=== PATIENT | male | born 1955 | race Caucasian/White ===

== ENCOUNTER 2024-07-29 21:57 | Inpatient (IN) ==
[2024-07-29] MEDS: ACETAMINOPHEN 1,000 MG/100 ML VIAL IV STA (22:18)
[2024-07-29 22:32] LABS: Base Excess VBG 6.4 mEq/L; HCO3 VBG 31 mmol/L; Oxygen Saturation VBG < 60.0 %; PCO2 VBG 45 mmHg (38-50); PO2 VBG 24 mmHg; pH VBG 7.45 (7.36-7.41)
[2024-07-29 22:38] LABS: Basophils # (auto) 0.05 K/uL (0.00-0.20); Basophils % (auto) 0.5 %; Eosinophils # (auto) 0.11 K/uL (0.00-0.50); Hematocrit (blood only) 41.3 % (42.0-52.0); Hemoglobin 13.2 g/dl (14.0-18.0); Immature Granulocytes # (auto) 0.04 K/uL (0.01-0.20); Immature Granulocytes % (auto) 0.4 %; Lymphocytes # (auto) 1.02 K/uL (1.20-3.40); Lymphocytes % (auto) 9.2 %; Mean Corpuscular Hemoglobin 28.6 pg (25.0-34.0); Mean Corpuscular Volume 89.6 fL (80.0-100.0); Mean Platelet Volume 10.7 fL (9.4-12.4); Monocytes # (auto) 0.96 K/uL (0.11-0.59); Monocytes % (auto) 8.7 %; Neutrophils # (auto) 8.89 K/uL (1.40-6.50); Neutrophils % (auto) 80.2 %; Platelet Count 240 K/uL (130-400); RDW Coefficient of Variation 15.5 % (11.5-14.5); RDW Standard Deviation 51.2 fL (36.4-46.3); Red Blood Count 4.61 M/uL (4.70-6.10); White Blood Count 11.07 K/ul (4.8-10.8)
[2024-07-29 22:55] LABS: Albumin Level 4.3 gm/dl (3.4-5.0); Bilirubin Direct 0.3 mg/dl (0-0.2); Bilirubin,Total 1.2 mg/dl (0.2-1.0); Calcium 9.9 mg/dl (8.6-10.3); Creatinine Clr Calc Pharmacy 93.1 ml/min; Magnesium 1.7 mg/dl (1.7-2.4); Potassium 3.6 mmol/L (3.5-5.1); Total Protein 8.7 gm/dl (6.0-8.3)
--- NOTE | 2024-07-29 23:01 | Emergency Department Note ---
Impression & Plan Acute hypoxic respiratory failure, Non-ST elevation HI (NSTEMI), Rhinovirus infection, Enterovirus infection, Elevated brain natriuretic peptide (BNP) level ED Provider Note HISTORY OF PRESENT ILLNESS: Patient is a 69-year-old male presenting with shortness of breath. Patient reports that he was seen earlier in the emergency department today and diagnosed with rhinovirus. He states that he was at home taking a nap when he was wearing his CPAP and he woke up and tried to get to the bathroom and he did not feel well and felt very short of breath. He does not wear any supplemental oxygen at baseline other than the CPAP at nighttime when he sleeps. He states that he was given a DuoNeb and route with EMS and is feeling slightly improved. He denies any chest pain. Denies any fevers at home today, but is febrile on arrival to the emergency department. He denies any abdominal pain, nausea or vomiting. Denies any dysuria or hematuria. Reports "I feel really crummy." ROS: as above PHYSICAL EXAM: Constitutional: Patient appears in no acute distress. HENT: Head: Normocephalic and atraumatic. Eyes: EOMI, PERRL Mouth/Throat: Mucous membranes moist. Neck: Trachea midline. Neck supple. Cardiovascular: Tachycardic with irregularly irregular rhythm. No murmurs, rubs or gallops. Intact distal pulses. Pulmonary/Chest: No respiratory distress. Breath sounds clear and equal bilaterally. No wheezes or rales. On 3L NC. Abdominal: Abdomen soft, no tenderness, rebound or guarding. Musculoskeletal: No edema, tenderness or deformity noted. Skin: Warm and dry. No rash, erythema, pallor or cyanosis Psychiatric: Appropriate mood and affect for situation. Neurological: Alert and keenly responsive. CN II-XII grossly intact, moving all extremities equally and fully. MDM: - Vitals signs showed hypertension, fever, tachycardia and hypoxia. Patient placed on 3 L nasal cannula with improvement of saturations to 94%. He is given 1 g IV Tylenol for fever. - History obtained via patient. History as above. - Chronic conditions affecting care: DM-2; HLD; CHF; Afib; HTN - Differential diagnoses include, but are not limited to: Congestive heart failure; acute coronary syndrome; COPD/asthma exacerbation; pulmonary edema; pulmonary embolism; pneumonia; pneumothorax; viral syndrome - Order placed for continuous cardiac monitoring. At this time, monitor showed rate of 106 bpm with irregular rhythm, per my interpretation. - External medical records reviewed. Chest x-ray from earlier today was noted to have cardiomegaly with pulmonary vascular congestion and probable mild interstitial pulmonary edema. - EKG interpreted by myself showed atrial fibrillation. Rate 92 bpm. QT 364. No acute ischemic changes. - Laboratory workup interpreted by myself showed leukocytosis (WBC 11.07) with neutrophil predominance; stable electrolytes; slightly elevated glucose (128); elevated total bilirubin (1.2); elevated troponin (59.9); elevated BNP (174); normal lactate; normal procalcitonin - Blood cultures obtained - CXR negative for pneumonia, per my interpretation - Patient on 3L NC, which is a new oxygen requirement for him. He was given 2 breathing treatments en route with EMS and does not have any audible wheezing on exam. - Viral respiratory panel from earlier today was positive for rhinovirus/enterovirus infection. - VBG grossly normal - Given patient's new oxygen requirement, will admit to hospitalist service. - Discussion was had with human services case manager about patient's case and need for admission - Hospitalist, Dr. Martinez, consulted for admission - Patient admitted to [facility] hospitalist service for further evaluation and management. ASSESSMENT AND PLAN: Diagnosis: Acute hypoxic respiratory failure; rhinovirus infection; enterovirus infection; elevated BNP; NSTEMI Plan: admit Past Med/Surg History Problem List (Updated 07/29/24 @ 23:48 by Zuleyma Mora MD) Elevated brain natriuretic peptide (BNP) level (Acute) Enterovirus infection (Acute) Rhinovirus infection (Acute) Non-ST elevation HI (NSTEMI) (Acute) Acute hypoxic respiratory failure (Acute) Rhinovirus (Acute) Pneumonia (Acute) Upper respiratory infection (Acute) Atherogenic dyslipidemia Chronic diastolic heart failure HTN (hypertension) (Chronic) Obstructive sleep apnea (Chronic) Morbid obesity (Chronic) Anxiety (Chronic) Diabetic peripheral neuropathy (Chronic) Insulin-requiring or dependent type II diabetes mellitus (Chronic) Hyperlipidemia (Chronic) CHF (congestive heart failure) Atrial fibrillation (Chronic) Metabolic syndrome GERD (gastroesophageal reflux disease) Dietary counseling and surveillance Chronic kidney disease, stage 3a Vitamin D deficiency Diabetes mellitus with stage 3 chronic kidney disease Medical History Abnormal stress test Acute kidney injury Hx of Guillain-[place] syndrome T2DM (type 2 diabetes mellitus) Surgical History History of tonsillectomy History of cataract extraction History of carpal tunnel release of both wrists Family History Mother Hypertension Father Diabetes Hypertension Heart disease Brother Diabetes Hypertension Heart disease Sister Hypertension Grandfather (Paternal) Myocardial infarction Grandmother (Paternal) Myocardial infarction Social History Smoking Status: Never smoker Hx Alcohol Use: Yes Alcohol type: beer and hard liquor Alcohol Intake Frequency Comment: mainly on hollidays Preferred Language: Urdu Feels Safe at Home: Yes Allergies Allergies Allergy/AdvReac Type Severity Reaction Status Date / Time amoxicillin Allergy Verified 02/19/24 13:20 Home Meds Home Medications Medication Instructions Recorded Confirmed atorvastatin 20 mg tablet 20 mg PO QPM 08/06/20 02/19/24 clonazepam 0.5 mg tablet 0.5 mg PO DAILY 08/06/20 02/19/24 melatonin 10 mg capsule 10 mg PO HS 08/06/20 02/19/24 metoprolol succinate 50 mg 50 mg PO DAILY 08/06/20 02/19/24 tablet,extended release 24 hr multivitamin 1 tab PO DAILY 08/06/20 02/19/24 blood sugar diagnostic (OneTouch #10 ea 03/30/23 02/19/24 Ultra Blue Test Strip) furosemide 20 mg tablet 20 mg PO DAILY 03/30/23 02/19/24 warfarin 6 mg tablet See Rx Instructions PO .COMPLEX 07/27/23 02/19/24 insulin aspart U-100 100 unit/mL 1 sliding scale dose subcut DAILY 12/25/23 02/19/24 (3 mL) subcutaneous pen (Novolog PRN FlexPen U-100 Insulin aspart) metformin 500 mg tablet 500 mg PO DAILY 12/25/23 02/19/24 pen needle, diabetic 31 gauge x 12/25/23 02/19/24 3/16" (BD Ultra-Fine Mini Pen Needle) acetaminophen [Tylenol Arthritis 650 mg PO PRN 02/15/24 02/19/24 Pain] gabapentin 800 mg tablet 800 mg PO TID 02/15/24 02/19/24 pantoprazole 40 mg tablet,delayed 40 mg PO DAILY 07/29/24 release Previous Rx's Medication Instructions Recorded cyanocobalamin (vitamin B-12) 1,000 mcg PO DAILY #30 caps 01/04/21 1,000 mcg capsule dapagliflozin propanediol 10 mg 10 mg PO DAILY #90 tabs 11/20/23 tablet apixaban 5 mg tablet (Eliquis) 5 mg PO BID #180 tabs 02/26/24 lisinopril 30 mg tablet 30 mg PO DAILY #90 tabs 04/10/24 semaglutide 2 mg/dose (8 mg/3 mL) 2 mg (0.75 mL) subcut Q7D #3 mL 07/23/24 subcutaneous pen injector (Ozempic) doxycycline hyclate 100 mg tablet 100 mg PO BID 7 days #14 tabs 07/29/24 Results & Data (ED) Vital Signs Vital Signs - 24 hr 07/29/24 21:58 07/29/24 22:08 07/29/24 22:09 Temperature 39.5 C H Temperature Source Oral Pulse Rate 130 H 121 H Pulse Rate [Finger] Respiratory Rate 24 Blood Pressure 168/136 H Blood Pressure [Left Arm] Blood Pressure Mean 146 Blood Pressure Mean [Left Arm] Pulse Oximetry 93 93 Oxygen Delivery Method Room Air Room Air Oxygen Flow Rate Sepsis Recent Fever Within 48 Hours Yes Sepsis New/Unexplained Change in Mental Status N/A Sepsis Action Taken by Nursing No Action Required 07/29/24 22:14 07/29/24 22:20 07/29/24 22:25 Temperature Temperature Source Pulse Rate Pulse Rate [Finger] 113 H Respiratory Rate 24 Blood Pressure Blood Pressure [Left Arm] Blood Pressure Mean Blood Pressure Mean [Left Arm] Pulse Oximetry 92 94 87 L Oxygen Delivery Method Room Air Room Air Room Air Oxygen Flow Rate Sepsis Recent Fever Within 48 Hours Sepsis New/Unexplained Change in Mental Status Sepsis Action Taken by Nursing 07/29/24 22:26 07/29/24 22:28 07/29/24 22:40 Temperature Temperature Source Pulse Rate Pulse Rate [Finger] 106 H Respiratory Rate 26 H Blood Pressure Blood Pressure [Left Arm] 176/119 H Blood Pressure Mean Blood Pressure Mean [Left Arm] 138 Pulse Oximetry 94 93 94 Oxygen Delivery Method Nasal Cannula Room Air Nasal Cannula Oxygen Flow Rate 3 3 Sepsis Recent Fever Within 48 Hours Sepsis New/Unexplained Change in Mental Status Sepsis Action Taken by Nursing 07/29/24 22:55 07/29/24 23:10 07/29/24 23:11 Temperature 37.5 C Temperature Source Oral Pulse Rate Pulse Rate [Finger] 103 H 105 H Respiratory Rate 24 26 H Blood Pressure Blood Pressure [Left Arm] 140/87 140/87 Blood Pressure Mean Blood Pressure Mean [Left Arm] 104 104 Pulse Oximetry 94 95 Oxygen Delivery Method Nasal Cannula Nasal Cannula Oxygen Flow Rate 3 3 Sepsis Recent Fever Within 48 Hours Sepsis New/Unexplained Change in Mental Status Sepsis Action Taken by Nursing 07/29/24 23:15 Temperature Temperature Source Pulse Rate Pulse Rate [Finger] 103 H Respiratory Rate 22 Blood Pressure Blood Pressure [Left Arm] 170/95 H Blood Pressure Mean Blood Pressure Mean [Left Arm] 120 Pulse Oximetry 95 Oxygen Delivery Method Nasal Cannula Oxygen Flow Rate 3 Sepsis Recent Fever Within 48 Hours Sepsis New/Unexplained Change in Mental Status Sepsis Action Taken by Nursing Laboratory Data 07/29/24 22:20 07/29/24 22:20 Lab Results 07/29/24 Range/Units 22:20 WBC 11.07 H (4.8-10.8) K/ul RBC 4.61 L (4.70-6.10) M/uL Hgb 13.2 L (14.0-18.0) g/dl Hct 41.3 L (42.0-52.0) % MCV 89.6 (80.0-100.0) fL MCH 28.6 (25.0-34.0) pg MCHC 32.0 (32.0-36.0) g/dL RDW Std Deviation 51.2 H (36.4-46.3) fL RDW Coeff of Stewart 15.5 H (11.5-14.5) % Plt Count 240 (130-400) K/uL MPV 10.7 (9.4-12.4) fL Immature Gran % (Auto) 0.4 % Neut % (Auto) 80.2 % Lymph % (Auto) 9.2 % Wood % (Auto) 8.7 % Eos % (Auto) 1.0 % Baso % (Auto) 0.5 % Neut # (Auto) 8.89 H (1.40-6.50) K/uL Lymph # (Auto) 1.02 L (1.20-3.40) K/uL Wood # (Auto) 0.96 H (0.11-0.59) K/uL Eos # (Auto) 0.11 (0.00-0.50) K/uL Baso # (Auto) 0.05 (0.00-0.20) K/uL Immature Gran # (Auto) 0.04 (0.01-0.20) K/uL VBG pH 7.45 H (7.36-7.41) VBG pCO2 45 (38-50) mmHg VBG pO2 24 mmHg VBG HCO3 31 mmol/L VBG O2 Saturation < 60.0 % VBG Base Excess 6.4 mEq/L Sodium 140 (136-145) mmol/L Potassium 3.6 (3.5-5.1) mmol/L Chloride 102 (98-107) mmol/L Carbon Dioxide 28 (21-32) mmol/L Anion Gap 10 (3-11) BUN 21 (6-23) mg/dl Creatinine 1.05 (0.6-1.4) mg/dl Est Cr Clr Drug Dosing 93.1 ml/min eGFR 76.36 BUN/Creatinine Ratio 20.0 (10-20) Glucose 128 H (70-99(Fasting)) mg/dl Lactate 1.8 (0.4-2.0) mmol/L Calcium 9.9 (8.6-10.3) mg/dl Magnesium 1.7 (1.7-2.4) mg/dl Total Bilirubin 1.2 H (0.2-1.0) mg/dl Direct Bilirubin 0.3 H (0-0.2) mg/dl AST 19 (13-39) U/L ALT 15 (7-52) U/L Alkaline Phosphatase 69 (34-104) U/L Troponin I High Sens 59.9 H* (0-20) pg/ml B-Natriuretic Peptide 174 H (0-100) pg/ml Total Protein 8.7 H (6.0-8.3) gm/dl Albumin 4.3 (3.4-5.0) gm/dl Procalcitonin 0.09 (0-0.5) ng/ml Administered Medications Discontinued Medications Acetaminophen (Ofirmev) 1,000 mg in 100 mls @ 400 mls/hr IV NOW STA Stop: 07/29/24 22:24 Last Infusion: 07/29/24 22:34 Dose: Infused Documented By: Admin: 07/29/24 22:18 Dose: 400 mls/hr Documented By: WAYNE Discharge Plan Visit Data Chief Complaint: Shortness of Breath/Dyspnea Stated Complaint: SHORTNESS OF BREATH, RHINO VIRUS ED Provider: Zuleyma Mora Discharge Problem: Acute hypoxic respiratory failure, Non-ST elevation HI (NSTEMI), Rhinovirus infection, Enterovirus infection, Elevated brain natriuretic peptide (BNP) level Forms Stand Alone Forms: My [facility] Prescriptions Prescriptions: No Action dapagliflozin propanediol 10 mg tablet 10 mg PO DAILY Qty: 90 3RF Eliquis 5 mg tablet 5 mg PO BID Qty: 180 3RF Rx Instructions: stop warfarin, 5 days later check INR and if less than 1.5 begin Eliquis as directed. lisinopril 30 mg tablet 30 mg PO DAILY Qty: 90 3RF Ozempic 2 mg/dose (8 mg/3 mL) pen injector 2 mg subcut Q7D Qty: 3 2RF (DME) OneTouch Ultra Blue Test Strip Strip See Rx Instructions .ROUTE .MEDSUPPLY Qty: 10 Rx Instructions: Test blood sugar once daily PRN gabapentin 800 mg tablet 800 mg PO TID cyanocobalamin (vitamin B-12) 1,000 mcg capsule 1,000 mcg PO DAILY Qty: 30 0RF furosemide 20 mg tablet 20 mg PO DAILY multivitamin Tablet 1 tab PO DAILY metoprolol succinate 50 mg tablet extended release 24 hr 50 mg PO DAILY atorvastatin 20 mg tablet 20 mg PO QPM clonazepam 0.5 mg tablet 0.5 mg PO DAILY melatonin 10 mg capsule 10 mg PO HS warfarin 6 mg tablet See Rx Instructions PO .COMPLEX Hold Instructions: changing meds. Rx Instructions: 6mg daily acetaminophen [Tylenol Arthritis Pain] 650 mg PO PRN insulin aspart U-100 [Novolog FlexPen U-100 Insulin] 100 unit/mL (3 mL) insulin pen 1 sliding scale dose subcut DAILY PRN metformin 500 mg tablet 500 mg PO DAILY Rx Instructions: Take with food. (DME) pen needle, diabetic [BD Ultra-Fine Mini Pen Needle] 31 gauge x 3/16" needle See Rx Instructions .ROUTE .MEDSUPPLY Rx Instructions: Inject insulin PRN pantoprazole 40 mg tablet,delayed release (DR/EC) 40 mg PO DAILY doxycycline hyclate 100 mg tablet 100 mg PO BID 7 Days Qty: 14 0RF Referrals Referrals: Juarez Connelly MD [Primary Care Provider] -
[2024-07-29 23:07] LABS: Troponin I High Sensitivity 59.9 pg/ml (0-20)
--- NOTE | 2024-07-30 00:11 | History & Physical Report ---
Date of Service July 29, 2024 Assessment & Plan (1) Enterovirus infection: Plan: Patient with Enterovirus, symptoms progressive over the last 3 days. Concern for developing pneumonia given worsening symptoms and infiltrates noted on CXR although with normal procalcitonin at this time -Admit to medical -Maintain droplet precautions -Supplemental O2 as needed to maintain saturations 94% or greater -Tylenol PRN -Zofan PRN -DuoNebs scheduled q 4 hours while awake -Guaifenesin 1200mg po BID (2) Elevated troponin: Plan: Patient with elevated troponin=59.5 --> 97.4. No report of chest pain -Repeat troponin -Check 2D echo (3) HTN (hypertension): Plan: Chronic. BP mildly elevated 153/83 -Continue Lisinopril -Continue Metoprolol (4) Obstructive sleep apnea: Plan: Chronic -Continue CPAP (5) Insulin-requiring or dependent type II diabetes mellitus: Plan: Chronic. Well controlled with last HgbA1C on 07/25 = 6. Patient is on Metformin, Dapagliflozin and Semaglutide at home. -Hold home regimen -Lantus 7u BID with ISS -Gabapentin 800mg po TID for neuropathy (6) Hyperlipidemia: Plan: Chronic. Stable -Continue Atorvastatin 20mg po daily (7) CHF (congestive heart failure): Plan: Chronic. Patient with elevation of troponin as well as BNP. Concern for some element of volume overload. -Trend troponin to peak -Continue Lasix 20mg po daily (8) Atrial fibrillation: Plan: Chronic. Rate controlled -Continue Apixaban 5mg po BID (9) GERD (gastroesophageal reflux disease): Plan: Chronic. Stable -Continue Protonix 40mg po daily History of Present Illness Chief Complaint: shortness of breath Primary Care Provider: Juarez Connelly MD Gregory Lucas is a 69yo male with history of DM, HTN, HLP, HF, AF and NEFTALI presenting with shortness of breath. Patient developed productive cough and shortness of breath on 07/27/24 which progressively worsened. He was seen in the ER earlier today and was ultimately discharged home. Found to be POSITIVE for Rhinovirus. He went home and took a nap and woke up around 18:00 with acutely worsened shortness of breath. Patient was wearing his CPAP at the time - was unable to catch his breath. Hypoxic on arrival at 87% on room air requiring supplemental O2 - presently saturating 94% on 4L NC Patient additional reports body aches, poor appetite, diarrhea and fever He denies edema, weight gain or orthopnea. No chest pain or palpitations. No nausea, vomiting or diarrhea. Allergies Allergy/AdvReac Type Severity Reaction Status Date / Time amoxicillin Allergy Verified 02/19/24 13:20 Home Medications Medication Instructions Recorded Confirmed Type atorvastatin 20 mg tablet 20 mg PO QPM 08/06/20 07/30/24 History clonazepam 0.5 mg tablet 0.5 mg PO DAILY 08/06/20 07/30/24 History melatonin 10 mg capsule 10 mg PO HS 08/06/20 07/30/24 History metoprolol succinate 50 mg 50 mg PO DAILY 08/06/20 07/30/24 History tablet,extended release 24 hr multivitamin 1 tab PO DAILY 08/06/20 07/30/24 History cyanocobalamin (vitamin B-12) 1,000 mcg PO DAILY #30 caps 01/04/21 07/30/24 Rx 1,000 mcg capsule blood sugar diagnostic (OneTouch #10 ea 03/30/23 02/19/24 History Ultra Blue Test Strip) furosemide 20 mg tablet 20 mg PO DAILY 03/30/23 07/30/24 History warfarin 6 mg tablet See Rx Instructions PO .COMPLEX 07/27/23 02/19/24 History dapagliflozin propanediol 10 mg 10 mg PO DAILY #90 tabs 11/20/23 07/30/24 Rx tablet insulin aspart U-100 100 unit/mL 1 sliding scale dose subcut DAILY 12/25/23 02/19/24 History (3 mL) subcutaneous pen (Novolog PRN FlexPen U-100 Insulin aspart) metformin 500 mg tablet 500 mg PO DAILY 12/25/23 07/30/24 History pen needle, diabetic 31 gauge x 12/25/23 02/19/24 History 3/16" (BD Ultra-Fine Mini Pen Needle) acetaminophen [Tylenol Arthritis 650 mg PO PRN 02/15/24 02/19/24 History Pain] gabapentin 800 mg tablet 800 mg PO TID 02/15/24 07/30/24 History apixaban 5 mg tablet (Eliquis) 5 mg PO BID #180 tabs 02/26/24 07/30/24 Rx lisinopril 30 mg tablet 30 mg PO DAILY #90 tabs 04/10/24 07/30/24 Rx semaglutide 2 mg/dose (8 mg/3 mL) 2 mg (0.75 mL) subcut Q7D #3 mL 07/23/24 07/30/24 Rx subcutaneous pen injector (Ozempic) doxycycline hyclate 100 mg tablet 100 mg PO BID 7 days #14 tabs 07/29/24 07/30/24 Rx pantoprazole 40 mg tablet,delayed 40 mg PO DAILY 07/29/24 07/30/24 History release Past Med/Surg History Problem List (Updated 07/30/24 @ 04:38 by Bahrati Martinez DO) Elevated troponin Elevated brain natriuretic peptide (BNP) level (Acute) Enterovirus infection (Acute) Rhinovirus infection (Acute) Non-ST elevation VA (NSTEMI) (Acute) Acute hypoxic respiratory failure (Acute) Rhinovirus (Acute) Pneumonia (Acute) Upper respiratory infection (Acute) Atherogenic dyslipidemia Chronic diastolic heart failure HTN (hypertension) (Chronic) Obstructive sleep apnea (Chronic) Morbid obesity (Chronic) Anxiety (Chronic) Diabetic peripheral neuropathy (Chronic) Insulin-requiring or dependent type II diabetes mellitus (Chronic) Hyperlipidemia (Chronic) CHF (congestive heart failure) Atrial fibrillation (Chronic) Metabolic syndrome GERD (gastroesophageal reflux disease) Dietary counseling and surveillance Chronic kidney disease, stage 3a Vitamin D deficiency Diabetes mellitus with stage 3 chronic kidney disease Medical History Abnormal stress test Acute kidney injury Hx of Guillain-Lakeland syndrome T2DM (type 2 diabetes mellitus) Surgical History History of tonsillectomy History of cataract extraction History of carpal tunnel release of both wrists Family History Mother Hypertension Father Diabetes Hypertension Heart disease Brother Diabetes Hypertension Heart disease Sister Hypertension Grandfather (Paternal) Myocardial infarction Grandmother (Paternal) Myocardial infarction Social History Smoking Status: Former smoker Second Hand Exposure: No; Do You Dip or Chew Tobacco: No; Tobacco Cessation Education Requested by Patient: No Hx Alcohol Use: Yes Alcohol type: beer Alcohol Intake Frequency Comment: mainly on hollidays Hx Substance Use: No Preferred Language: [place]an Communication Ability: Effective Internet Marketing Analyst Required: No Beliefs That Will Affect Care: None Current Living Situation: Family Current Living Situation Comment: With daughter Other Information That Helps Us Care for You: No Feels Safe at Home: Yes Safety Concerns: Feels Safe At This Time Assistive Devices: CPAP and Oxygen - Continuous Review of Systems Review of Systems: All systems reviewed & are unremarkable except as noted in HPI & below Physical Exam Physical Exam: General: patient appears uncomfortable, NAD Skin: warm, moist, intact, no rashes or lesions HEENT: NC/AT, PERRL, EOMI, anicteric sclera, conjunctiva without injection, external ear normal to inspection and nontender, nares patent, moist mucus membranes, dentition intact, no oropharyngeal lesions, neck supple, trachea midline, no LAD, no thyromegaly, no JVD Heart: +S1/S2, regular, no m/r/g Lungs: equal air entry bilaterally, coarse breath sounds anteriorly improved with coughing, scattered end-expiratory wheezing Abd: +BS, soft, NT/ND, no masses/organomegaly/ascites Ext: warm, 2+ pulses in UE/LE bilaterally, no clubbing/cyanosis or edema Neuro: nonfocal, patient AA&O x 4, speech intact, no facial droop, moving all extremities on command with equal strength 5/5 Results & Data Results & Data Vital Signs (Past 12 Hours) Vital Signs Temp Pulse Pulse Resp BP BP Pulse Ox 07/29/24 23:15 103 H 22 170/95 H 95 07/29/24 23:11 37.5 C 07/29/24 23:10 105 H 26 H 140/87 95 07/29/24 22:55 103 H 24 140/87 94 07/29/24 22:40 106 H 26 H 176/119 H 94 07/29/24 22:28 93 07/29/24 22:26 94 07/29/24 22:25 113 H 24 87 L 07/29/24 22:20 94 07/29/24 22:14 92 07/29/24 22:09 121 H 07/29/24 22:08 93 07/29/24 21:58 39.5 C H 130 H 24 168/136 H 93 O2 Del Method O2 Flow Rate 07/29/24 23:15 Nasal Cannula 3 07/29/24 23:11 07/29/24 23:10 Nasal Cannula 3 07/29/24 22:55 Nasal Cannula 3 07/29/24 22:40 Nasal Cannula 3 07/29/24 22:28 Room Air 07/29/24 22:26 Nasal Cannula 3 07/29/24 22:25 Room Air 07/29/24 22:20 Room Air 07/29/24 22:14 Room Air 07/29/24 22:09 07/29/24 22:08 Room Air 07/29/24 21:58 Room Air Laboratory Results Laboratory Results WBC 11.07 K/ul (4.8-10.8) H 07/29/24 22:20 RBC 4.61 M/uL (4.70-6.10) L 07/29/24 22:20 Hgb 13.2 g/dl (14.0-18.0) L 07/29/24 22:20 Hct 41.3 % (42.0-52.0) L 07/29/24 22:20 MCV 89.6 fL (80.0-100.0) 07/29/24 22:20 MCH 28.6 pg (25.0-34.0) 07/29/24 22:20 MCHC 32.0 g/dL (32.0-36.0) 07/29/24 22:20 RDW Std Deviation 51.2 fL (36.4-46.3) H 07/29/24 22:20 RDW Coeff of Stewart 15.5 % (11.5-14.5) H 07/29/24 22:20 Plt Count 240 K/uL (130-400) 07/29/24 22:20 MPV 10.7 fL (9.4-12.4) 07/29/24 22:20 Immature Gran % (Auto) 0.4 % 07/29/24 22:20 Neut % (Auto) 80.2 % 07/29/24 22:20 Lymph % (Auto) 9.2 % 07/29/24 22:20 [place] % (Auto) 8.7 % 07/29/24 22:20 Eos % (Auto) 1.0 % 07/29/24 22:20 Baso % (Auto) 0.5 % 07/29/24 22:20 Neut # (Auto) 8.89 K/uL (1.40-6.50) H 07/29/24 22:20 Lymph # (Auto) 1.02 K/uL (1.20-3.40) L 07/29/24 22:20 [place] # (Auto) 0.96 K/uL (0.11-0.59) H 07/29/24 22:20 Eos # (Auto) 0.11 K/uL (0.00-0.50) 07/29/24 22:20 Baso # (Auto) 0.05 K/uL (0.00-0.20) 07/29/24 22:20 Immature Gran # (Auto) 0.04 K/uL (0.01-0.20) 07/29/24 22:20 VBG pH 7.45 (7.36-7.41) H 07/29/24 22:20 VBG pCO2 45 mmHg (38-50) 07/29/24 22:20 VBG pO2 24 mmHg 07/29/24 22:20 VBG HCO3 31 mmol/L 07/29/24 22:20 VBG O2 Saturation < 60.0 % 07/29/24 22:20 VBG Base Excess 6.4 mEq/L 07/29/24 22:20 Sodium 140 mmol/L (136-145) 07/29/24 22:20 Potassium 3.6 mmol/L (3.5-5.1) 07/29/24 22:20 Chloride 102 mmol/L (98-107) 07/29/24 22:20 Carbon Dioxide 28 mmol/L (21-32) 07/29/24 22:20 Anion Gap 10 (3-11) 07/29/24 22:20 BUN 21 mg/dl (6-23) 07/29/24 22:20 Creatinine 1.05 mg/dl (0.6-1.4) 07/29/24 22:20 Est Cr Clr Drug Dosing 93.1 ml/min 07/29/24 22:20 eGFR 76.36 07/29/24 22:20 BUN/Creatinine Ratio 20.0 (10-20) 07/29/24 22:20 Glucose 128 mg/dl (70-99(Fasting)) H 07/29/24 22:20 Lactate 1.8 mmol/L (0.4-2.0) 07/29/24 22:20 Calcium 9.9 mg/dl (8.6-10.3) 07/29/24 22:20 Magnesium 1.7 mg/dl (1.7-2.4) 07/29/24 22:20 Total Bilirubin 1.2 mg/dl (0.2-1.0) H 07/29/24 22:20 Direct Bilirubin 0.3 mg/dl (0-0.2) H 07/29/24 22:20 AST 19 U/L (13-39) 07/29/24 22:20 ALT 15 U/L (7-52) 07/29/24 22:20 Alkaline Phosphatase 69 U/L (34-104) 07/29/24 22:20 Troponin I High Sens 97.4 pg/ml (0-20) H* D 07/30/24 01:00 B-Natriuretic Peptide 174 pg/ml (0-100) H 07/29/24 22:20 Total Protein 8.7 gm/dl (6.0-8.3) H 07/29/24 22:20 Albumin 4.3 gm/dl (3.4-5.0) 07/29/24 22:20 Procalcitonin 0.09 ng/ml (0-0.5) 07/29/24 22:20 Urine Color Yellow 07/29/24 23:42 Urine Appearance Clear (Clear) 07/29/24 23:42 Urine pH 6.0 (4.5-7.5) 07/29/24 23:42 Ur Specific [place] 1.039 (1.000-1.030) H 07/29/24 23:42 Urine Protein 1+ (Negative) H 07/29/24 23:42 Urine Glucose (UA) 3+ (Negative) H 07/29/24 23:42 Urine Ketones 1+ (Negative) H 07/29/24 23:42 Urine Blood Negative (Negative) 07/29/24 23:42 Urine Nitrite Negative (Negative) 07/29/24 23:42 Urine Bilirubin Negative (Negative) 07/29/24 23:42 Urine Urobilinogen Negative (Negative) 07/29/24 23:42 Ur Leukocyte Esterase Negative (Negative) 07/29/24 23:42 Urine WBC (Auto) 0-5 /hpf (0-5) 07/29/24 23:42 Urine RBC (Auto) 0-2 /hpf (0-2) 07/29/24 23:42 U Hyaline Cast (Auto) 0-2 /lpf (0-2) 07/29/24 23:42 U Epithel Cells (Auto) 0-2 /hpf (0-2) 07/29/24 23:42 Urine Bacteria (Auto) None Seen (None Seen) 07/29/24 23:42 Impressions Chest X-Ray 07/29/24 22:10 Exam(s): XR CXR 1 VIEW EXAM: XR Chest, 1 View CLINICAL HISTORY: Reason for exam: Sepsis. TECHNIQUE: Frontal view of the chest. COMPARISON: 07/29/24 at 0831 FINDINGS: Lungs: Increasing bilateral lower lung zone airspace opacities, left greater than right, concerning for pneumonia. Pleural space: No pneumothorax. No visible pleural effusion. Left costophrenic angle is excluded from view. Heart: Stable heart size. Bones/joints: No acute fracture. No dislocation. IMPRESSION: Increasing bilateral lower lung zone airspace opacities, left greater than right, concerning for pneumonia. Electronically signed by: Mitch Saldana M.D. 07/30/24 01:13 AM Code Status & VTE Plan VTE Prophylaxis Plan VTE Prophylaxis will be ordered: Yes PG Care Time/CCT Total # of Minutes Spent Total Time Spent with Patient: Total time spent is greater than 50% in coordination of care (as documented) at patient's floor/unit and/or counseling patient: Coding Level of Care Code 64857 INT INP/OBS CARE 3/75MIN Diagnoses Enterovirus infection B34.1 Elevated troponin R79.89 Primary hypertension I10 Hypertension type: primary hypertension Obstructive sleep apnea G47.33 Insulin-requiring or dependent type II diabetes mellitus E11.9; Z79.4 Mixed hyperlipidemia E78.2 Hyperlipidemia type: mixed hyperlipidemia Chronic congestive heart failure, unspecified heart failure type I50.9 Heart failure type: unspecified Heart failure chronicity: chronic Atrial fibrillation I48.91 GERD (gastroesophageal reflux disease) K21.9 (3) HTN (hypertension) Hypertension type: primary hypertension Qualified Code(s): I10 - Essential (primary) hypertension (6) Hyperlipidemia Hyperlipidemia type: mixed hyperlipidemia Qualified Code(s): E78.2 - Mixed hyperlipidemia (7) CHF (congestive heart failure) Heart failure type: unspecified Heart failure chronicity: chronic Qualified Code(s): I50.9 - Heart failure, unspecified
[2024-07-30 00:14] LABS: Appearance Urine Clear (Clear); Bacteria Urine Automated None Seen (None Seen); Bilirubin Urine Negative (Negative); Blood Urine Negative (Negative); Cast Urine Automated 0-2 /lpf (0-2); Color Urine Yellow; Epithelial Cell Urine Auto 0-2 /hpf (0-2); Glucose Urine UA 3+ (Negative); Ketones Urine 1+ (Negative); Leukocyte Esterase Urine Negative (Negative); Nitrite Urine Negative (Negative); Protein Urine 1+ (Negative); RBC Urine Automated 0-2 /hpf (0-2); Specific Gravity Urine 1.039 (1.000-1.030); Urobilinogen Urine Negative (Negative); WBC Urine Automated 0-5 /hpf (0-5)
[2024-07-30] MEDS: hydrALAZINE HCL 20 MG/ML VIAL IV STA (00:49)
[2024-07-30] MEDS: GABAPENTIN 800 MG TAB PO STA (01:09)
[2024-07-30] MEDS: APIXABAN 5 MG TABLET PO STA (01:10)
--- NOTE | 2024-07-30 01:15 | XRay Report ---
Exam(s): XR CXR 1 VIEW EXAM: XR Chest, 1 View CLINICAL HISTORY: Reason for exam: Sepsis. TECHNIQUE: Frontal view of the chest. COMPARISON: 07/29/24 at 0831 FINDINGS: Lungs: Increasing bilateral lower lung zone airspace opacities, left greater than right, concerning for pneumonia. Pleural space: No pneumothorax. No visible pleural effusion. Left costophrenic angle is excluded from view. Heart: Stable heart size. Bones/joints: No acute fracture. No dislocation. IMPRESSION: Increasing bilateral lower lung zone airspace opacities, left greater than right, concerning for pneumonia. Electronically signed by: Mitch Saldana M.D. 07/30/24 01:13 AM
[2024-07-30] MEDS ORDERED: ONDANSETRON INJ 2 MG/ML 2 ML VIAL IV PRN (03:21)
[2024-07-30] MEDS ORDERED: MELATONIN 3 MG TAB PO PRN (03:54)
[2024-07-30] MEDS: ALBUT/IPRATROP 3MG/0.5MG NEB 3 ML VIAL NEB SCH (04:08)
[2024-07-30 04:52] LABS: Hematocrit (blood only) 37.8 % (42.0-52.0); Hemoglobin 12.2 g/dl (14.0-18.0); Mean Corpuscular Hgb Conc 32.3 g/dL (32.0-36.0); Mean Platelet Volume 10.9 fL (9.4-12.4); Platelet Count 214 K/uL (130-400); RDW Coefficient of Variation 15.5 % (11.5-14.5); White Blood Count 13.29 K/ul (4.8-10.8)
[2024-07-30 05:02] LABS: Albumin Level 3.7 gm/dl (3.4-5.0); BUN Creatinine Ratio 20.7 (10-20); Bilirubin Direct 0.4 mg/dl (0-0.2); Bilirubin,Total 1.2 mg/dl (0.2-1.0); Calcium 9.5 mg/dl (8.6-10.3); Creatinine Clr Calc Pharmacy 105.9 ml/min; Potassium 3.6 mmol/L (3.5-5.1); Total Protein 7.5 gm/dl (6.0-8.3)
[2024-07-30] MEDS: ACETAMINOPHEN 325 MG TAB PO PRN (07:59)
[2024-07-30] MEDS: GABAPENTIN 800 MG TAB PO SCH (08:01)
[2024-07-30] MEDS: FUROSEMIDE 20 MG TAB PO SCH (08:02)
[2024-07-30] MEDS: lisinopril 10 MG TAB PO SCH (08:02)
[2024-07-30] MEDS: guaiFENesin 600 MG TABCR PO SCH (08:02)
[2024-07-30] MEDS: PANTOprazole 40 MG TAB PO SCH (08:02)
[2024-07-30] MEDS: METOPROLOL SUCC 50MG EXT REL TAB PO SCH (08:02)
[2024-07-30] MEDS: APIXABAN 5 MG TABLET PO SCH (08:03)
--- NOTE | 2024-07-30 08:41 | Hospitalist Progress Note ---
Date of Service July 30, 2024 Assessment & Plan (1) Enterovirus infection: Plan: Patient with Enterovirus, symptoms progressive over the last 3 days. Concern for developing pneumonia given worsening symptoms and infiltrates noted on CXR although with normal procalcitonin at this time -Admit to medical -Maintain droplet precautions -Supplemental O2 as needed to maintain saturations 94% or greater -Tylenol PRN -Zofan PRN -DuoNebs scheduled q 4 hours while awake -Guaifenesin 1200mg po BID 07/30 WBC slightly worse but remaining afebrile. Requiring 4L NC to maintain sats (was on 3L this morning). BNP SLIGHT elevation to 174 but weight close to dry 310- 312lb presently and remains on usual lasix 20mg PO daily Reporting yellow/brown sputum production (RN reporting huerta) --> Chest 2 view obtained for concerns superimposed pneumonia given +cough/sputum production/leukocytosis and rales on R>L on exam --> CXR noting mild interstitial pulm edema, patchy bilateral airspace opacities suspicious for superimposed pneumonia Continue duonebs q4h SCHEDULED, mucinex BID +Incentive spirometer to be provided as well as flutter valve Mag checked, 1.5 -- IV replacement ordered and will monitor on repeat ADDING CEFTRIAXONE/DOXY FOR pneumonia coverage RN obtained sputum cx --> FOLLOW UP No wheezing/need for steroids at this time but will monitor Monitor labs/exam on repeat PT/OT consults added for completeness Supplemental O2 to maintain sats (NOT ON O2 at baseline, would need 2 step if still requiring) (2) Elevated troponin: Plan: Patient with elevated troponin=59.5 --> 97.4 --> 73.2. Suspected demand ischemia from hypoxia/infection above. No reported CP. (EKG noting undetermined rhythm, prior w/ afib.) No CP reported, suspect demand ischemia from infection above, possible elevated HR w/ dehydration from poor PO intake/hypoxia. ECHO ordered on admission, will require follow up. Remains on metoprolol daily, eliquis No need for telemetry at this time but to monitor (3) HTN (hypertension): Plan: Chronic. BP 153/83 on admission Remains on metoprolol, lisinopril Monitor (4) Obstructive sleep apnea: Plan: Chronic -Continue CPAP (5) Insulin-requiring or dependent type II diabetes mellitus: Plan: Chronic. + Well controlled with last HgbA1C on 07/25 = 6. Patient is on Metformin, Dapagliflozin and Semaglutide at home. -Hold home regimen -Lantus 7u BID with ISS BSGs acceptable and will monitor/adjustment as needed (w/ mag replacement w/ dextrose) Continue Gabapentin 800mg po TID for neuropathy. Is on B12 supplementation at baseline w/ metformin use per med rec (6) Hyperlipidemia: Plan: Chronic. Stable -Continue Atorvastatin 20mg po daily (7) CHF (congestive heart failure): Plan: Chronic. Patient with elevation of troponin as well as BNP to 174 (no prior for comparison). Suspected acute on chronic HF w/ preserved EF possible on admission however appears close to reported dry weight ~310-312lb and minimal elevation of BNP w/o increased LE edema and deferred on additional IV diuretics and will monitor volume status with baseline 20mg PO lasix DId have decreased PO intake over the weekened w/ illness as above, monitoring volume status daily (adding I&Os, daily weights) Troponin peaked as above, suspected demand ischemia from hypoxia/enterovirus/possible pneumonia as above. Did have elevated HR, ?afib prior to admission. Keeping mag/K replete Repeat ECHO ordered on admission, will need f/u (8) Atrial fibrillation: Plan: Chronic. Rate controlled at present time. GIven eliquis PO x 1 on admission and remains on 5mg PO BID Keep mag/K replete- mag replacement as above and will monitor (9) GERD (gastroesophageal reflux disease): Plan: Chronic. Stable -Continue Protonix 40mg po daily, mag replacement as above Plan DVT propH: eliquis BID continued Dispo: continued inpatient stay, added antibiotics for suspected superimposed pneumonia. remains on isolation precautions and sputum cx pending/will need follow up. pt/ot consults added for completeness and if improving but still requiring O2 and wanting to go will need 2step prior to dc as not on oxygen at baseline Admission and Anticipated Discharge Date Admission Date: July 30, 2024 Supervising Physician Co-Signing Physician Notes The patient was not seen by me. The chart was reviewed. Case discussed with CIERRA Johnson. Agree with assessment and plan Subjective Evaluated this morning, reports feeling slightly better than when he came in. Still with cough, reports brown/huerta sputum, nursing reported grayish color on recent collection. RN asked to provide patient with incentive spirometer and discussed will order flutter valve as well. CXR w/ opacities and rales on examination and given leukocytosis will plan to at least place on Doxycycline for now and monitor for addition of Ceftriaxone. Will follow up sputum cx. Is on lasix at baseline, no increased LE edema and continues current dose. PO intake fair/slightly decreased since symptoms started this past Monday. Smoking hx in the past but not recently. No hx COPD/inhalers at baseline. Discussed continued inpatient say, abx. Prior allergy to amoxicillin reported vomiting, no anaphylaxis. Will order Ceftriaxone w/ Doxycycline for CAP coverage. Questions/concerns addressed at this time. Physical Exam 2 Physical Exam: General: 69yo male laying in bed, FATIGUED appearing, reporting feeling SLIGHTLY better, NAD HEENT: +facial hair, head atraumatic, normocephalic, mm slightly dry, trachea midline Resp: even/unlabored, slightly diminished in the bases, +RALES RIGHT>LEFT, more at the base, no significant wheezing, on 4L NC, SpO2 97% CV: irregularly irregular, rates controlled, no significant LE edema (reports at baseline), calves nontender, pulses present GI: _BS, soft/NT no cohen MSK/Neuro: nonfocal, not confused, answering questions appropriately, generalized weakness Psych: AOx3, cooperative with exam Results & Data Results & Data Vital Signs (Past 12 Hours) Vital Signs Temp Pulse Pulse Resp BP BP Pulse Ox 07/30/24 07:50 36.8 C 91 H 16 151/96 H 96 07/30/24 07:11 96 H 18 98 07/30/24 04:10 90 18 94 07/30/24 03:23 36.8 C 92 H 20 153/83 H 97 07/30/24 03:23 07/30/24 03:23 36.8 C 92 H 20 153/83 H 97 07/30/24 02:43 75 22 135/73 94 07/30/24 02:11 91 H 07/30/24 01:03 88 20 130/85 96 07/29/24 23:15 103 H 22 170/95 H 95 07/29/24 23:11 37.5 C 07/29/24 23:10 105 H 26 H 140/87 95 07/29/24 22:55 103 H 24 140/87 94 07/29/24 22:40 106 H 26 H 176/119 H 94 07/29/24 22:28 93 07/29/24 22:26 94 07/29/24 22:25 113 H 24 87 L 07/29/24 22:20 94 07/29/24 22:14 92 07/29/24 22:09 121 H 07/29/24 22:08 93 07/29/24 21:58 39.5 C H 130 H 24 168/136 H 93 O2 Del Method O2 Flow Rate 07/30/24 07:50 Nasal Cannula 3 07/30/24 07:11 Nasal Cannula 4 07/30/24 04:10 Nasal Cannula 4 07/30/24 03:23 Nasal Cannula 3 07/30/24 03:23 Nasal Cannula 3 07/30/24 03:23 Nasal Cannula 3 07/30/24 02:43 Nasal Cannula 3 07/30/24 02:11 07/30/24 01:03 07/29/24 23:15 Nasal Cannula 3 07/29/24 23:11 07/29/24 23:10 Nasal Cannula 3 07/29/24 22:55 Nasal Cannula 3 07/29/24 22:40 Nasal Cannula 3 07/29/24 22:28 Room Air 07/29/24 22:26 Nasal Cannula 3 07/29/24 22:25 Room Air 07/29/24 22:20 Room Air 07/29/24 22:14 Room Air 07/29/24 22:09 07/29/24 22:08 Room Air 07/29/24 21:58 Room Air Laboratory Results 07/30/24 04:04 07/30/24 04:04 VBG pH 7.45 Mag 1.5 Troponin 59.9 --> 97.4 --> 73.2 Procalcitonin 0.09 UA 1+ protein, 3+ glucose, 1+ ketones Diagnostic Findings Chest X-Ray 07/29/24 22:10 Exam(s): XR CXR 1 VIEW EXAM: XR Chest, 1 View CLINICAL HISTORY: Reason for exam: Sepsis. TECHNIQUE: Frontal view of the chest. COMPARISON: 07/29/24 at 0831 FINDINGS: Lungs: Increasing bilateral lower lung zone airspace opacities, left greater than right, concerning for pneumonia. Pleural space: No pneumothorax. No visible pleural effusion. Left costophrenic angle is excluded from view. Heart: Stable heart size. Bones/joints: No acute fracture. No dislocation. IMPRESSION: Increasing bilateral lower lung zone airspace opacities, left greater than right, concerning for pneumonia. Electronically signed by: Mitch Saldana M.D. 07/30/24 01:13 AM Chest X-Ray 07/30/24 08:37 XR chest 2V PA/lateral HISTORY: 69 years-old Male f/u PNA vs atelectasis, f/u pulm edema acute shortness of breath COMPARISON: 07/29/2024 TECHNIQUE: PA and lateral views of the chest FINDINGS: Cardiac silhouette is enlarged. Atherosclerosis of the aorta. Pulmonary vascular congestion with interstitial coarsening. Mild hazy bibasilar and left mid lung opacities appear generally stable. Bones appear grossly intact. No pneumothorax. Trace pleural effusions. IMPRESSION: 1. Cardiomegaly with with probable mild interstitial pulmonary edema and trace pleural effusions. 2. Patchy bibasilar and left midlung airspace opacities are again noted suspicious for superimposed pneumonia. ACT 112: Negative or not required by law. The above report was generated using voice recognition software. It may contain grammatical, syntax or spelling errors. Electronically signed by: Braulio Ware M.D. 07/30/2024 10:58 AM PG Care Time/CCT Total # of Minutes Spent Total Time Spent with Patient: Total time spent is greater than 50% in coordination of care (as documented) at patient's floor/unit and/or counseling patient: Coding Level of Care Code 14292 SUB INP/OBS CARE 3/50MIN Diagnoses Enterovirus infection B34.1 Elevated troponin R79.89 Primary hypertension I10 Hypertension type: primary hypertension Obstructive sleep apnea G47.33 Insulin-requiring or dependent type II diabetes mellitus E11.9; Z79.4 Mixed hyperlipidemia E78.2 Hyperlipidemia type: mixed hyperlipidemia Chronic congestive heart failure, unspecified heart failure type I50.9 Heart failure chronicity: chronic Heart failure type: unspecified Atrial fibrillation I48.91 GERD (gastroesophageal reflux disease) K21.9 (3) HTN (hypertension) Hypertension type: primary hypertension Qualified Code(s): I10 - Essential (primary) hypertension (6) Hyperlipidemia Hyperlipidemia type: mixed hyperlipidemia Qualified Code(s): E78.2 - Mixed hyperlipidemia (7) CHF (congestive heart failure) Heart failure chronicity: chronic Heart failure type: unspecified Qualified Code(s): I50.9 - Heart failure, unspecified
[2024-07-30] MEDS ORDERED: clonazePAM 0.5 MG TAB PO SCH (09:00)
[2024-07-30] MEDS: MAGNESIUM SULFATE / D5W 1 GM/100 ML BAG IV ONE ×2 (09:24→12:08)
[2024-07-30 10:00] LABS: Magnesium 1.5 mg/dl (1.7-2.4)
--- NOTE | 2024-07-30 10:59 | XRay Report ---
XR chest 2V PA/lateral HISTORY: 69 years-old Male f/u PNA vs atelectasis, f/u pulm edema acute shortness of breath COMPARISON: 07/29/2024 TECHNIQUE: PA and lateral views of the chest FINDINGS: Cardiac silhouette is enlarged. Atherosclerosis of the aorta. Pulmonary vascular congestion with inte rstitial coarsening. Mild hazy bibasilar and left mid lung opacities appear generally stable. Bones a ppear grossly intact. No pneumothorax. Trace pleural effusions. IMPRESSION: 1. Cardiomegaly with with probable mild interstitial pulmonary edema and trace pleural effusions. 2. Patchy bibasilar and left midlung airspace opacities are again noted suspicious for superimposed p neumonia. ACT 112: Negative or not required by law. The above report was generated using voice recognition software. It may contain grammatical, syntax o r spelling errors. Electronically signed by: Braulio Ware M.D. 07/30/2024 10:58 AM
[2024-07-30] MEDS: cefTRIAXone SODIUM 2,000 MG/50 ML BAG IV SCH (12:59)
[2024-07-30] MEDS: DOXYCYCLINE HYCLATE 100 MG in DEXTROSE 5% MINI-B 100 ML IV SCH (13:30)
[2024-07-30] MEDS: ATORVASTATIN 20 MG TAB PO SCH (20:35)
[2024-07-30] MEDS: clonazePAM 0.5 MG TAB PO SCH (20:35)
--- NOTE | 2024-07-31 08:02 | XRay Report ---
EXAM: XR chest 1V portable CLINICAL HISTORY: FOLLOW UP [facility] TECHNIQUE: X-ray images of the chest were obtained in AP projection COMPARISON: 07/29/2024 FINDINGS: Pulmonary Parenchyma: Mild congestive changes bilaterally with ill-defined hazy opacity in right lung lower zone, could be infiltrates, mildly progressed since prior study. No pneumothorax. Bilateral obscured CP angles could be due to overlying soft tissues or minimal pleural effusion. Heart and Mediastinum: Mild cardiomegaly is likely due to poor inspiratory effort. Bony Thorax: The bony thorax appears intact without any significant deformities. Soft Tissues: Soft tissues overlying the chest wall are unremarkable. IMPRESSION: Mild congestive changes bilaterally with ill-defined hazy opacity in right lung lower zone, could be infiltrates, mildly progressed since prior study dated 07/29/2024. For further evaluation. No pneumothorax. Bilateral obscured CP angles could be due to overlying soft tissues or minimal pleural effusion. Electronically signed by Bassem Cordon 07-31-2024 08:02 AM
--- NOTE | 2024-07-31 09:03 | Hospitalist Progress Note ---
Date of Service July 31, 2024 Assessment & Plan (1) Enterovirus infection: Plan: Presented with SOB x 3 days with productive cough, hypoxia requiring 4L NC to maintain sats with POSITIVE enterovirus testing on [facility]. WBC 12.9k with temp 39.5C which responded well to Tylenol Supportive care initially with duonebs/mucinex and pulmonary toilet however given leukocytosis and CXR concerning for developing pneumonia with increased brown/yellow sputum production decision to add abx coverage for superimposed bacteria pneumonia IMPROVING WBC now wnl, has remained afebrile Continue Ceftriaxone/Doxy (day 2 on 07/31) Duonebs q4h, pulmonary toilet with incentive spirometry and flutter valve Titrated to ROOM AIR today Sputum cx pending, needs follow up Mag wnl but 1.8 and additonal 1gm IV for wheezing w/ his afib, rates controlled and remains on metoprolol/eliquis. Cough syrup added as needed for relief Repeat cxr w/ increased effusions and despite decreased weight compared to dry, additional 20mg PO lasix to be provided Patient feeling more comfortable monitoring overnight and hopeful dc 08/01 on PO abx to complete the course. Monitor for ambulatory pulse ox/2step if needed. (2) Pneumonia: Plan: as above, concerning for superimposed bacterial pneumonia. IMPROVING since additional of abx and now on room air. Tx as outlined and will need f/u sputum cx (3) Hypomagnesemia: Plan: 1.5, IV replacement ordered and improved to 1.8 as above. Additional 1gm provided today to keep closer to 2 w/ underlying afib and will monitor level in am/consider oral replacement. (4) CHF (congestive heart failure): Plan: Acute on chronic HF with preserved ejection fraction suspected however weight at 310lb w/ dry weight 310-312lb reported and continued usual 20mg PO lasix. BNP slight elevation to 174, no increased LE edema but with additional fluid w/ IV/magnesium did order additional 20mg PO dose for 07/31, BUN/Cr 17/.090 Monitor weights/I&Os (weight presently 308lb) ECHO ordered on admission, done but not yet read-- will need f/u (5) Atrial fibrillation: Plan: Chronic, stable Rate controlled at present time and remains on metoprolol/eliquis 5mg BID Mag/k replacement as above to keep closer to 2/4 No issues reported, but will monitor (6) Elevated troponin: Plan: Patient with elevated troponin=59.5 --> 97.4 --> 73.2. Suspected demand ischemia from hypoxia/infection above. No reported CP. (EKG noting undetermined rhythm, prior w/ afib.) Suspect demand ischemia from infection above, possible elevated HR w/ dehydration from poor PO intake/hypoxia with pneumonia/infection as above ECHO still pending as above Continue on metoprolol, eliquis (7) HTN (hypertension): Plan: Chronic, stable and continues on metoprolol, lisinopril, lasix as above with additional dose 07/31 Monitor (8) Obstructive sleep apnea: Plan: Chronic/stable, continue CPAP HS (9) Insulin-requiring or dependent type II diabetes mellitus: Plan: Chronic., controlled. A1c last at 6. Home regimen with metformin, Dapagliflozin and Semaglutide on hold and utilizing SSI while inpatient , BSGs stable. Continues on gabapentin for neuropathy (10) Hyperlipidemia: Plan: Chronic. Stable Continue Atorvastatin 20mg po daily (11) GERD (gastroesophageal reflux disease): Plan: Chronic. Stable Continue Protonix 40mg po daily, mag replacement as above Plan DVT propH: eliquis BID continued Dispo: continued inpatient stay but hopeful for dc 08/01. Need f/u on sputum cx and echo prior to dc. Consideration for ambulatory pulse ox vs 2step if any ongoing O2 needs but is currently on room air Admission and Anticipated Discharge Date Admission Date: July 29, 2024 Supervising Physician Co-Signing Physician Notes The patient was not seen by me. The chart was reviewed. Case discussed with CIERRA Johnson. Agree with assessment and plan Subjective Evaluated this morning, ambulating in the room. Now on room air, increased coughing/sputum production. Discussed WBC improving, sputum cx pending. Patient does report feeling improved but not comfortable going home just yet and will plan to continue current treatment and follow up on sputum cx and possible discharge tomorrow. Did give additional dose of lasix for pulmonary edema/fluid retention to assist with MILD wheezing and will monitor for steroids if needed but suspect likely improvement with additional dose. Physical Exam 2 Physical Exam: General: 69yo male ambulating in the room, looks improved, NAD, +cough HEENT: +facial hair, head atraumatic, normocephalic, mmm, trachea midline Resp: even/unlabored, slightly diminished in the bases with faint end expiratory wheezing more on the R>L, on ROOM AIR today, no tachypnea, able to speak in complete sentences CV: irregularly irregular, rates controlled, no significant LE edema (reports at baseline), calves nontender, pulses present GI: _BS, soft/NT no cohen MSK/Neuro: nonfocal, not confused, answering questions appropriately, generalized weakness Psych: AOx3, cooperative with exam Results & Data Results & Data Vital Signs (Past 12 Hours) Vital Signs Temp Pulse Pulse Resp BP Pulse Ox O2 Del Method 07/31/24 08:37 Room Air 07/31/24 08:17 95 Room Air 07/31/24 07:47 36.3 C L 87 16 135/87 94 Nasal Cannula 07/31/24 07:16 95 H 18 96 Nasal Cannula 07/31/24 02:45 93 H 18 96 Nasal Cannula 07/30/24 23:59 90 17 97 07/30/24 22:21 83 18 94 Nasal Cannula 07/30/24 21:15 37.4 C 94 H 18 148/87 H 95 Room Air O2 Flow Rate 07/31/24 08:37 07/31/24 08:17 07/31/24 07:47 3 07/31/24 07:16 2 07/31/24 02:45 2 07/30/24 23:59 2 07/30/24 22:21 07/30/24 21:15 Laboratory Results 07/31/24 09:26 07/31/24 09:26 Mag 1.8 TB wnl 0.6, LFTs wnl Diagnostic Findings Chest X-Ray 07/31/24 07:00 EXAM: XR chest 1V portable CLINICAL HISTORY: FOLLOW UP [facility] TECHNIQUE: X-ray images of the chest were obtained in AP projection COMPARISON: 07/29/2024 FINDINGS: Pulmonary Parenchyma: Mild congestive changes bilaterally with ill-defined hazy opacity in right lung lower zone, could be infiltrates, mildly progressed since prior study. No pneumothorax. Bilateral obscured CP angles could be due to overlying soft tissues or minimal pleural effusion. Heart and Mediastinum: Mild cardiomegaly is likely due to poor inspiratory effort. Bony Thorax: The bony thorax appears intact without any significant deformities. Soft Tissues: Soft tissues overlying the chest wall are unremarkable. IMPRESSION: Mild congestive changes bilaterally with ill-defined hazy opacity in right lung lower zone, could be infiltrates, mildly progressed since prior study dated 07/29/2024. For further evaluation. No pneumothorax. Bilateral obscured CP angles could be due to overlying soft tissues or minimal pleural effusion. Electronically signed by Bassem Cordon 07-31-2024 08:02 AM PG Care Time/CCT Total # of Minutes Spent Total Time Spent with Patient: Total time spent is greater than 50% in coordination of care (as documented) at patient's floor/unit and/or counseling patient: Coding Level of Care Code 05264 SUB INP/OBS CARE 3/50MIN Diagnoses Enterovirus infection B34.1 Pneumonia J18.9 Hypomagnesemia E83.42 Chronic congestive heart failure, unspecified heart failure type I50.9 Heart failure chronicity: chronic Heart failure type: unspecified Atrial fibrillation I48.91 Elevated troponin R79.89 Primary hypertension I10 Hypertension type: primary hypertension Obstructive sleep apnea G47.33 Insulin-requiring or dependent type II diabetes mellitus E11.9; Z79.4 Mixed hyperlipidemia E78.2 Hyperlipidemia type: mixed hyperlipidemia GERD (gastroesophageal reflux disease) K21.9 (4) CHF (congestive heart failure) Heart failure chronicity: chronic Heart failure type: unspecified Qualified Code(s): I50.9 - Heart failure, unspecified (7) HTN (hypertension) Hypertension type: primary hypertension Qualified Code(s): I10 - Essential (primary) hypertension (10) Hyperlipidemia Hyperlipidemia type: mixed hyperlipidemia Qualified Code(s): E78.2 - Mixed hyperlipidemia
[2024-07-31 09:53] LABS: Basophils # (auto) 0.04 K/uL (0.00-0.20); Basophils % (auto) 0.4 %; Eosinophils # (auto) 0.18 K/uL (0.00-0.50); Eosinophils % (auto) 1.9 %; Hematocrit (blood only) 35.8 % (42.0-52.0); Hemoglobin 11.6 g/dl (14.0-18.0); Immature Granulocytes # (auto) 0.02 K/uL (0.01-0.20); Immature Granulocytes % (auto) 0.2 %; Lymphocytes # (auto) 1.04 K/uL (1.20-3.40); Lymphocytes % (auto) 11.2 %; Mean Corpuscular Hemoglobin 29.1 pg (25.0-34.0); Mean Corpuscular Hgb Conc 32.4 g/dL (32.0-36.0); Mean Corpuscular Volume 89.7 fL (80.0-100.0); Mean Platelet Volume 10.8 fL (9.4-12.4); Monocytes # (auto) 0.55 K/uL (0.11-0.59); Monocytes % (auto) 5.9 %; Neutrophils # (auto) 7.42 K/uL (1.40-6.50); Neutrophils % (auto) 80.4 %; Platelet Count 223 K/uL (130-400); RDW Coefficient of Variation 15.4 % (11.5-14.5); RDW Standard Deviation 50.9 fL (36.4-46.3); Red Blood Count 3.99 M/uL (4.70-6.10); White Blood Count 9.25 K/ul (4.8-10.8)
[2024-07-31] MEDS: FUROSEMIDE 20 MG TAB PO ONE (10:14)
[2024-07-31 10:18] LABS: Albumin Globulin Ratio 0.9 (0.9-2); Albumin Level 3.6 gm/dl (3.4-5.0); BUN Creatinine Ratio 18.9 (10-20); Bilirubin,Total 0.6 mg/dl (0.2-1.0); Calcium 9.4 mg/dl (8.6-10.3); Creatinine Clr Calc Pharmacy 107.9 ml/min; Magnesium 1.8 mg/dl (1.7-2.4); Potassium 3.6 mmol/L (3.5-5.1); Total Protein 7.6 gm/dl (6.0-8.3)
[2024-07-31] MEDS: guaiFENesin/DEXTROM SYRUP 100MG/10MG 5ML UDC PO PRN (11:12)
[2024-07-31] MEDS: MAGNESIUM SULFATE / D5W 1 GM/100 ML BAG IV ONE (11:12)
--- NOTE | 2024-07-31 18:09 | XCELERA ---
[id number]
[2024-07-31] MEDS: DOXYCYCLINE HYCLATE 100 MG CAP PO SCH (20:22)
[2024-07-31] MEDS: COUGH DROP (SUGAR FREE) LOZ 24 LOZ/1 BOX BUCCAL STA (23:37)
[2024-08-01 07:36] LABS: BUN Creatinine Ratio 23.9 (10-20); Calcium 9.1 mg/dl (8.6-10.3); Creatinine Clr Calc Pharmacy 110.2 ml/min; Magnesium 1.8 mg/dl (1.7-2.4); Potassium 3.4 mmol/L (3.5-5.1)
--- NOTE | 2024-08-01 08:25 | Hospitalist Progress Note ---
Date of Service August 01, 2024 Assessment & Plan Admission and Anticipated Discharge Date Admission Date: July 29, 2024 Results & Data Results & Data Vital Signs (Past 12 Hours) Vital Signs Temp Pulse Resp BP Pulse Ox O2 Del Method 08/01/24 07:39 36.8 C 90 16 125/81 99 Room Air 08/01/24 07:16 98 H 18 92 Room Air 08/01/24 03:42 101 H 18 90 Room Air 07/31/24 23:31 99 H 18 90 Room Air PG Care Time/CCT Total # of Minutes Spent Total Time Spent with Patient: Total time spent is greater than 50% in coordination of care (as documented) at patient's floor/unit and/or counseling patient: Coding
[2024-08-01] MEDS: POTASSIUM CHLORIDE CRTAB 20 MEQ TABCR PO STA ×2 (09:51→10:52)
--- NOTE | 2024-08-01 10:25 | Discharge Summary ---
Discharge Summary Date of Service August 01, 2024 Principal Dx & Hospital Course #1 = Principal Diagnosis (1) Enterovirus infection: Presented with SOB x 3 days with productive cough, hypoxia requiring 4L NC to maintain sats with POSITIVE enterovirus testing on [employer]fire. WBC 12.9k with temp 39.5C which responded well to Tylenol Supportive care initially with duonebs/mucinex and pulmonary toilet however given leukocytosis and CXR concerning for developing pneumonia with increased brown/yellow sputum production decision to add abx coverage for superimposed bacteria pneumonia with Ceftriaxone/Doxycycline and continued Duonebs q4h and was titrated and remained on room air. Sputum cx obtained with normal respiratory frieda. WBC normalized and patient remains AFEBRILE. During inpatient stay, Gregory was provided additional 20mg PO lasix on 07/31.. W eight below prior dry weight but was effective and renal function stable and repeat dose provided prior to discharge. as given additional 1gm IV mag and prednisone 40mg for wheezing with plans to continue Cefpodoxime/Doxycycline to complete course for pneumonia. Started/recommended to continue mucinex BID, incentive spirometer/flutter valve. Prednisone at dc 10mg TID x 2 days, BID x 2 days, then once daily x 2 days to complete taper. Educated to monitor for additional lasix as needed for fluid retention Ambulated in the room with nursing and SpO2 remained >93% and no need for 2 step. Albuterol HFA sent at discharge. To return to the ER with any worsening SOB, fevers, or other symptoms concerning for him. (2) Pneumonia: suspected superimposed bacterial pneuomnia given significant leukocytosis/hypoxia/sputum production w/ improvement on exam and titration to room air as above. Completing course PO abx as above and to continue prednisone taper along with pulmonary toilet at discharge (3) Hypomagnesemia: Checked/low and replacement ordered. Given additional 1gm IV to keep closer to 2 but was stable at 1.8 and can consider PO supp in f/u with PCP (4) CHF (congestive heart failure): Acute on chronic HF with preserved ejection fraction suspected however notable his weight at 310lb on admission w/ dry weight reported at 310-312lb reported and continued usual 20mg PO lasix. BNP slight elevation to 174, no increased LE edema but with additional fluid w/ IV/magnesium Continued on metoprolol, lisinopril 30mg daily, lasix 20mg PO daily. additional lasix 20mg PO dose for 07/31., repeat dose 08/01 ordered Renal function stable and weights to 308lb prior to dc. Instructed to monitor for additional needs at discharge with prednisone ECHO w/ normal EF. Septal motion c/w IVCD. RV grossly normal. Mild-mod MR, mild TR Outpt f/u cardiology w/ Dr Alas as needed, ref to CHF clinic placed but is on appropriate GDMT at this time (5) Atrial fibrillation: Chronic, stable Rate controlled at present time and remained on metoprolol/eliquis 5mg BID Outpt f/u as above (6) Elevated troponin: Patient with elevated troponin=59.5 --> 97.4 --> 73.2. Suspected demand ischemia from hypoxia/infection above. No reported CP. (EKG noting undetermined rhythm, prior w/ afib.) Suspect demand ischemia from infection above, possible elevated HR w/ dehydration from poor PO intake/hypoxia with pneumonia/infection as above and HRs improved with treatment ECHO as above and continued on home medications and to have outpt f/u Dr Alas (7) HTN (hypertension): Chronic, stable and continues on metoprolol, lisinopril, lasix as above with additional dose 07/31 Monitor (8) Obstructive sleep apnea: Chronic/stable, continue CPAP HS (9) Insulin-requiring or dependent type II diabetes mellitus: Chronic., controlled. A1c last at 6. Home regimen with metformin, Dapagliflozin and Semaglutide on hold and utilizing SSI while inpatient , BSGs stable and to resume home regimen at discharge Continued on gabapentin for neuropathy (10) Hyperlipidemia: Chronic. Continued Atorvastatin 20mg po daily (11) GERD (gastroesophageal reflux disease): Chronic. Stable. Continued Protonix 40mg po daily Plan DVT propH: eliquis BID continued while inpatient Notes For Next Care Provider F/u CXR for resolution Ensure f/u cardiology/CHF clinic for echo. Medication Changes From Visit Cefpodoxime 200mg PO BID Doxycycline 100mg PO BID Albuterol HFA prn Prednisone taper 10mg TID x 2 days, BID x 2 days, then once daily x 2 days to complete taper. Educated to monitor for additional lasix as needed for fluid retention Mucinex 1200mg PO BID Admission HPI Per Admitting Provider Gregory Spaid is a 69yo male with history of DM, HTN, HLP, HF, AF and NEFTALI presenting with shortness of breath. Patient developed productive cough and shortness of breath on 07/27/24 which progressively worsened. He was seen in the ER earlier today and was ultimately discharged home. Found to be POSITIVE for Rhinovirus. He went home and took a nap and woke up around 18:00 with acutely worsened shortness of breath. Patient was wearing his CPAP at the time - was unable to catch his breath. Hypoxic on arrival at 87% on room air requiring supplemental O2 - presently saturating 94% on 4L NC Patient additional reports body aches, poor appetite, diarrhea and fever He denies edema, weight gain or orthopnea. No chest pain or palpitations. No nausea, vomiting or diarrhea. Admission Exam Per Admitting Provider General: patient appears uncomfortable, NAD Skin: warm, moist, intact, no rashes or lesions HEENT: NC/AT, PERRL, EOMI, anicteric sclera, conjunctiva without injection, external ear normal to inspection and nontender, nares patent, moist mucus membranes, dentition intact, no oropharyngeal lesions, neck supple, trachea midline, no LAD, no thyromegaly, no JVD Heart: +S1/S2, regular, no m/r/g Lungs: equal air entry bilaterally, coarse breath sounds anteriorly improved with coughing, scattered end-expiratory wheezing Abd: +BS, soft, NT/ND, no masses/organomegaly/ascites Ext: warm, 2+ pulses in UE/LE bilaterally, no clubbing/cyanosis or edema Neuro: nonfocal, patient AA&O x 4, speech intact, no facial droop, moving all extremities on command with equal strength 5/5 Discharge Exam General: 69yo male sitting up in the bed, appears improved, on room air HEENT: +facial hair, head atraumatic, normocephalic, mmm, trachea midline Resp: even/unlabored, slightly diminished in the bases with improvement in air entry but still with faint expiratory wheezing on the right>L, able to talk in complete sentences, occasional cough. on ROOM AIR CV: irregularly irregular, rates controlled, trace LE edema, pulses present/calves nontender GI: _BS, soft/NT no cohen MSK/Neuro: nonfocal, not confused, answering questions appropriately, generalized weakness Psych: AOx3, cooperative with exam Discharge Plan Discharge Items Patient Disposition: Home - Self-Care Reason For Visit: RHINOVIRUS, HYPOXIA Discharge Diagnosis: Rhinovirus, Pneumonia Goals: You have been hospitalized for an acute medical problem. During your stay at [facility], we have made an effort to correct the problem that brought you to the hospital while keeping you as comfortable as possible. Medications were used to bring your condition under control and your discharge instructions will include directions for any medications you should take after leaving the hospital. Please make sure you see your Primary Care Provider as part of your follow up plan. Activity: Resume your previous activity Non-emergency contact: Primary Care Provider and Inside Sales Consultant Call non-emergency contact if: you have any medication questions, your symptoms worsen, your pain is not controlled and you have a fever Follow-up/Referrals: Prieto Alas MD, PhD [Physician] - Juarez Connelly MD [Primary Care Provider] - 08/12/24 2:30 pm Diet: Carb Consistent or DM2 and Heart Healthy Addtl Attending Provider Instructions: You have been hospitalized for shortness of breath and low oxygen levels. Respiratory testing was positive for ENTEROVIRUS/RHINOVIRUS, however your elevated white count and sputum production and fevers with chest imaging were concerning for superimposed bacterial pneumonia and you were placed on antibiotics with significant improvement and titration off of oxygen with normal white blood counts on repeat, indicating improvement. At discharge, you are being sent home on Cedpodoxime 200mg twice daily for ano ther FOUR days, Doxycycline will be for another 3 days as is given for atypical coverage. You should continue to use the incentive spirometry and mucinex to help thin mucus and help to cough this up. Sputum culture was negative. We have given you some steroids and at discharge are to take prednisone 10mg three times daily for two days, then decrease to twice daily for two days then once daily for 2 days to complete a taper. Please monitor for swelling/edema or need for additional lasix (furosemide) while on this as this can lead to fluid retention/edema as discussed. You are also being sent home with an albuterol inhaler to use every 4-6 hours for the next couple of days and then can be used as needed for shortness of breath. Please follow up with primary care in the next 7-10 days to monitor your progress after discharge. Please return to the ER with any increased shortness of breath, fevers/chills, chest pain, or for any other symptoms concerning for you. It has been a pleasure being a part of the medical team providing for you while you have been in the hospital. Take care! Pending Studies at Discharge: Yes Studies:: blood cultures -- no growth to date Stand-Alone Forms: My [facility], Smoking Cessation Medications and DC Order Prescriptions: New cefpodoxime 200 mg tablet 200 mg PO BID 4 Days Qty: 8 0RF Rx Instructions: must administer with a meal/food albuterol sulfate 90 mcg/actuation HFA aerosol inhaler 2 inh inhalation Q6H PRN (Reason: shortness of breath or wheezing) Qty: 6.7 0RF guaifenesin [Mucinex] 1,200 mg tablet extended release 12hr 1,200 mg PO BID Qty: 20 0RF doxycycline hyclate 100 mg tablet 100 mg PO BID 3 Days Qty: 6 0RF prednisone 10 mg tablet 10 mg PO DIRECTED Qty: 12 0RF Rx Instructions: see taper instructions Continued dapagliflozin propanediol 10 mg tablet 10 mg PO DAILY Qty: 90 3RF Eliquis 5 mg tablet 5 mg PO BID Qty: 180 3RF Rx Instructions: stop warfarin, 5 days later check INR and if less than 1.5 begin Eliquis as directed. lisinopril 30 mg tablet 30 mg PO DAILY Qty: 90 3RF Ozempic 2 mg/dose (8 mg/3 mL) pen injector 2 mg subcut Q7D Qty: 3 2RF gabapentin 800 mg tablet 800 mg PO TID cyanocobalamin (vitamin B-12) 1,000 mcg capsule 1,000 mcg PO DAILY Qty: 30 0RF furosemide 20 mg tablet 20 mg PO DAILY multivitamin Tablet 1 tab PO DAILY metoprolol succinate 50 mg tablet extended release 24 hr 50 mg PO DAILY atorvastatin 20 mg tablet 20 mg PO QPM clonazepam 0.5 mg tablet 0.5 mg PO DAILY melatonin 10 mg capsule 10 mg PO HS acetaminophen [Tylenol Arthritis Pain] 650 mg PO PRN insulin aspart U-100 [Novolog FlexPen U-100 Insulin] 100 unit/mL (3 mL) insulin pen 1 sliding scale dose subcut DAILY PRN metformin 500 mg tablet 500 mg PO DAILY Rx Instructions: Take with food. pantoprazole 40 mg tablet,delayed release (DR/EC) 40 mg PO DAILY No Action (DME) OneTouch Ultra Blue Test Strip Strip See Rx Instructions .ROUTE .MEDSUPPLY Qty: 10 Rx Instructions: Test blood sugar once daily PRN (DME) pen needle, diabetic [BD Ultra-Fine Mini Pen Needle] 31 gauge x 3/16" needle See Rx Instructions .ROUTE .MEDSUPPLY Rx Instructions: Inject insulin PRN Discharge Orders: Discharge Order- CHF (Routine); Ordered 08/01/24 Ordered By: Lynette Morrow Admission Data Admit Date/Time: 07/29/24 23:40 Attending Provider: Sukhwinder Villafuerte Admit Provider: Bharati Martinez Primary Care Provider: Juarez Connelly Other Providers: Bharati Martinez Hospital Stay Data Consultations 07/29/24 23:43 ED Decision to Admit Stat Diagnostic Imagining Performed Chest X-Ray 07/29/24 22:10 Exam(s): XR CXR 1 VIEW EXAM: XR Chest, 1 View CLINICAL HISTORY: Reason for exam: Sepsis. TECHNIQUE: Frontal view of the chest. COMPARISON: 07/29/24 at 0831 FINDINGS: Lungs: Increasing bilateral lower lung zone airspace opacities, left greater than right, concerning for pneumonia. Pleural space: No pneumothorax. No visible pleural effusion. Left costophrenic angle is excluded from view. Heart: Stable heart size. Bones/joints: No acute fracture. No dislocation. IMPRESSION: Increasing bilateral lower lung zone airspace opacities, left greater than right, concerning for pneumonia. Electronically signed by: Mitch Saldana M.D. 07/30/24 01:13 AM Chest X-Ray 07/30/24 08:37 XR chest 2V PA/lateral HISTORY: 69 years-old Male f/u PNA vs atelectasis, f/u pulm edema acute shortness of breath COMPARISON: 07/29/2024 TECHNIQUE: PA and lateral views of the chest FINDINGS: Cardiac silhouette is enlarged. Atherosclerosis of the aorta. Pulmonary vascular congestion with interstitial coarsening. Mild hazy bibasilar and left mid lung opacities appear generally stable. Bones appear grossly intact. No pneumothorax. Trace pleural effusions. IMPRESSION: 1. Cardiomegaly with with probable mild interstitial pulmonary edema and trace pleural effusions. 2. Patchy bibasilar and left midlung airspace opacities are again noted suspicious for superimposed pneumonia. ACT 112: Negative or not required by law. The above report was generated using voice recognition software. It may contain grammatical, syntax or spelling errors. Electronically signed by: Braulio Ware M.D. 07/30/2024 10:58 AM Chest X-Ray 07/31/24 07:00 EXAM: XR chest 1V portable CLINICAL HISTORY: FOLLOW UP PNA [facility] TECHNIQUE: X-ray images of the chest were obtained in AP projection COMPARISON: 07/29/2024 FINDINGS: Pulmonary Parenchyma: Mild congestive changes bilaterally with ill-defined hazy opacity in right lung lower zone, could be infiltrates, mildly progressed since prior study. No pneumothorax. Bilateral obscured CP angles could be due to overlying soft tissues or minimal pleural effusion. Heart and Mediastinum: Mild cardiomegaly is likely due to poor inspiratory effort. Bony Thorax: The bony thorax appears intact without any significant deformities. Soft Tissues: Soft tissues overlying the chest wall are unremarkable. IMPRESSION: Mild congestive changes bilaterally with ill-defined hazy opacity in right lung lower zone, could be infiltrates, mildly progressed since prior study dated 07/29/2024. For further evaluation. No pneumothorax. Bilateral obscured CP angles could be due to overlying soft tissues or minimal pleural effusion. Electronically signed by Bassem Cordon 07-31-2024 08:02 AM ECHOCARDIOGRAM 07/31/24 Limited views obtained. Technically difficult. Normal LV size. EF 60-65%. Septal motion consistent with IVCD. RV is grossly normal. RV function was not evaluated. Moderate LAE. Rigght atrium not well visualized. Mild-moderate MR. Mild TR. No prior for comparison. Pending Results Patient Have Any Pending Studies at Discharge: Yes Discharge Instructions Given to Patient (Per Discharging Provider) You have been hospitalized for shortness of breath and low oxygen levels. Respiratory testing was positive for ENTEROVIRUS/RHINOVIRUS, however your elevated white count and sputum production and fevers with chest imaging were concerning for superimposed bacterial pneumonia and you were placed on antibiotics with significant improvement and titration off of oxygen with normal white blood counts on repeat, indicating improvement. At discharge, you are being sent home on Cedpodoxime 200mg twice daily for another FOUR days, Doxycycline will be for another 3 days as is given for atypical coverage. You should continue to use the incentive spirometry and mucinex to help thin mucus and help to cough this up. Sputum culture was negative. We have given you some steroids and at discharge are to take prednisone 10mg three times daily for two days, then decrease to twice daily for two days then once daily for 2 days to complete a taper. Please monitor for swelling/edema or need for additional lasix (furosemide) while on this as this can lead to fluid retention/edema as discussed. You are also being sent home with an albuterol inhaler to use every 4-6 hours for the next couple of days and then can be used as needed for shortness of georgi th. Please follow up with primary care in the next 7-10 days to monitor your progress after discharge. Please return to the ER with any increased shortness of breath, fevers/chills, chest pain, or for any other symptoms concerning for you. It has been a pleasure being a part of the medical team providing for you while you have been in the hospital. Take care! Supervising Physician Co-Signing Physician Notes The patient was not seen by me. The chart was reviewed. Case discussed with CIERRA Johnson. Agree with assessment and plan Total Time Total Time Spent Total Time Spent (In Minutes): 45 Coding Level of Care Code 86891 INP/OBS DISCH >30 MIN Diagnoses Enterovirus infection B34.1 Pneumonia J18.9 Hypomagnesemia E83.42 Chronic congestive heart failure, unspecified heart failure type I50.9 Heart failure chronicity: chronic Heart failure type: unspecified Atrial fibrillation I48.91 Elevated troponin R79.89 Primary hypertension I10 Hypertension type: primary hypertension Obstructive sleep apnea G47.33 Insulin-requiring or dependent type II diabetes mellitus E11.9; Z79.4 Mixed hyperlipidemia E78.2 Hyperlipidemia type: mixed hyperlipidemia GERD (gastroesophageal reflux disease) K21.9
[2024-08-01] MEDS: FUROSEMIDE 20 MG TAB PO ONE (10:53)
[2024-08-01] MEDS: MAGNESIUM SULFATE / D5W 1 GM/100 ML BAG IV ONE (10:53)
[2024-08-01] MEDS: predniSONE 20 MG TAB PO STA (10:53)
[2024-08-01 11:11] VITALS: RESP 18
[2024-08-01 14:53] VITALS: BP 110/78; PULSE 92; TEMP 97.7; O2SAT 94
--- NOTE | 2024-08-01 16:18 | Electrocardiogram Report ---
Test Reason : Blood Pressure : */* mmHG Vent. 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
== END 2024-08-01 14:56 | disposition home or self-care (01) | DRG 193 ==
LOC: ED 21:57 → SUATTDRO 07-30 → 3W 07-30